=== PATIENT | female | born 1995 | race Caucasian/White ===

== ENCOUNTER 2020-09-03 06:43 | Outpatient (CLI) | payer BC, OTHER | END 2020-09-03 23:59 | disposition home or self-care (01) | LOC: LAB 06:43 | PROVIDERS: ATTEND Internal Medicine Gastroenterology | DX: Z01.812 Encounter for preprocedural laboratory examination (principal); Z20.822 Contact with and (suspected) exposure to COVID-19; R13.10 Dysphagia, unspecified ==

== ENCOUNTER 2020-09-05 10:14 | Day surgery (SDC) | payer BC, OTHER ==
[2020-09-05] MEDS ORDERED: PROPOFOL 200 MG/20 ML BOTTLE IV ONE (10:15)
[2020-09-05] MEDS ORDERED: LIDOCAINE-MPF 2% 5 ML VIAL IJ ONE (10:15)
[2020-09-05] MEDS ORDERED: IRR STERIL WATER FOR IRR 1000 ML BOTTLE IR ONE (10:15)
[2020-09-05 10:41] LABS: *URINE HCG, QUAL NEG (NEGATIVE)
[2020-09-05 10:42] LABS: *BILIRUBIN,URIN NEGATIVE (NEGATIVE); *BLOOD, URINE NEGATIVE (NEGATIVE); *CLARITY,URINE SLIGHTLY CLOUDY (CLEAR); *COLOR,URINE YELLOW (YELLOW); *KETONES,URINE NEGATIVE (NEGATIVE); *UROBILINOGEN,URINE 0.2 E.U./dl (NORMAL); LEUKOCYTE ESTERASE ,URINE 1+ (NEGATIVE); NITRITE, URINE NEGATIVE (NEGATIVE); UGLUCOSE NEGATIVE (NEGATIVE)
[2020-09-05 10:54] LABS: BASOPHILS # (AUTO) 0.1 K/uL (0.0-8.0); BASOPHILS % (AUTO) 0.8 % (0.0-2.0); EOSINOPHILS # (AUTO) 0.2 K/uL (0.0-0.7); EOSINOPHILS % (AUTO) 2.6 % (0.0-7.0); HEMATOCRIT 36.1 % (31.2-41.9); HEMOGLOBIN 12.9 g/dL (10.9-14.3); LYMPHOCYTES % (AUTO) 28.5 % (20.5-51.5); MEAN CORPUSCULAR HEMOGLOBIN 31.8 uug (24.7-32.8); MEAN CORPUSCULAR HGB CONC 36 g/dL (32.3-35.6); MEAN CORPUSCULAR VOLUME 89.1 fL (75.5-95.3); MONOCYTES # (AUTO) 0.3 K/uL (2.0-10.0); MONOCYTES % (AUTO) 4.6 % (0.0-11.0); NEUTROPHILS # (AUTO) 4.5 K/uL (1.8-8.9); NEUTROPHILS % (AUTO) 63.5 % (38.5-71.5); PLATELET COUNT (AUTO) 306 K/uL (179-408); RED BLOOD CELL COUNT(AUTO) 4.05 MIL/uL (3.63-4.92); WHITE BLOOD COUNT (AUTO) 7.1 K/uL (3.8-11.8)
[2020-09-05 11:05] LABS: CREATININE 0.7 mg/dL (0.6-1.3); POTASSIUM 3.6 mmol/L (3.5-5.1)
[2020-09-05 11:11] LABS: BILIRUBIN,TOTAL 0.5 mg/dL (0.2-1.0); TOTAL PROTEIN, SERUM 7.2 g/dL (6.4-8.2)
[2020-09-05 23:02] LABS: BACTERIA,URINE MODERATE /HPF (NONE SEEN); RBC,URINE 0-3 /HPF (0-3); SQUAMOUS EPITHELIAL CELL,UR MANY /HPF (NONE SEEN)
== END 2020-09-05 13:20 | disposition home or self-care (01) ==
LOC: DS 10:14
PROVIDERS: ATTEND Internal Medicine Gastroenterology
DX: R13.10 Dysphagia, unspecified (principal); K21.00 Gastro-esophageal reflux disease with esophagitis, without bleeding; K29.50 Unspecified chronic gastritis without bleeding; K31.89 Other diseases of stomach and duodenum; Z79.899 Other long term (current) drug therapy; Z88.0 Allergy status to penicillin; Z88.1 Allergy status to other antibiotic agents; Z88.2 Allergy status to sulfonamides; Z98.890 Other specified postprocedural states
CPT/HCPCS: 36415; 43239; 80053; 81001; 84703; 85025; 85730; 87086; J3490; J7120 ×2; 88313-TC; 88342; A4217; A4663

== ENCOUNTER 2020-09-10 07:10 | Outpatient (CLI) | payer BC, OTHER ==
[2020-09-10 07:25] LABS: BASOPHILS # (AUTO) 0.1 K/uL (0.0-8.0); BASOPHILS % (AUTO) 1.1 % (0.0-2.0); EOSINOPHILS # (AUTO) 0.2 K/uL (0.0-0.7); EOSINOPHILS % (AUTO) 2.8 % (0.0-7.0); HEMATOCRIT 34.6 % (31.2-41.9); HEMOGLOBIN 12.1 g/dL (10.9-14.3); LYMPHOCYTES # (AUTO) 2.2 K/uL (20.0-40.0); LYMPHOCYTES % (AUTO) 31.9 % (20.5-51.5); MEAN CORPUSCULAR HEMOGLOBIN 31.7 uug (24.7-32.8); MEAN CORPUSCULAR HGB CONC 35 g/dL (32.3-35.6); MEAN CORPUSCULAR VOLUME 90.7 fL (75.5-95.3); MONOCYTES # (AUTO) 0.4 K/uL (2.0-10.0); MONOCYTES % (AUTO) 5.2 % (0.0-11.0); NEUTROPHILS # (AUTO) 4.1 K/uL (1.8-8.9); PLATELET COUNT (AUTO) 255 K/uL (179-408); RED BLOOD CELL COUNT(AUTO) 3.82 MIL/uL (3.63-4.92); WHITE BLOOD COUNT (AUTO) 6.9 K/uL (3.8-11.8)
[2020-09-10] MEDS ORDERED: BARIUM SULFATE 450 ML ORAL.SUSP ONE (07:31)
[2020-09-10] MEDS ORDERED: IV NORMAL SALINE 250 ML IV ONE (07:31)
[2020-09-10] MEDS ORDERED: IOHEXOL 300MG/ML 100 ML INFUS..BTL ONE (07:31)
[2020-09-10] MEDS ORDERED: SWABABLE VALVE TRANSFER SET EA MC ONE (07:31)
[2020-09-10 07:50] LABS: BILIRUBIN,TOTAL 0.5 mg/dL (0.2-1.0); CREATININE 0.7 mg/dL (0.6-1.3); POTASSIUM 4.1 mmol/L (3.5-5.1); TOTAL PROTEIN, SERUM 6.7 g/dL (6.4-8.2)
--- NOTE | 2020-09-11 09:20 | NUR ---
PT. CAME IN FOR CT ABD = PELVIS W/WO CONTRAST ON 09/11/20 ALL RESULTS OF THE PATIENT'S STUDY WERE FAXED TO HER DRKalTHIS MORNING
== END 2020-09-10 23:59 | disposition home or self-care (01) ==
LOC: LAB 07:10
PROVIDERS: ATTEND Family Medicine
DX: K61.0 Anal abscess (principal); K64.9 Unspecified hemorrhoids
CPT/HCPCS: 36415; 74178; 80053; 84702; 85025; Q9951; Q9967; J7050

== ENCOUNTER 2020-12-13 20:31 | Inpatient (IN) | payer BC, OTHER ==
[~2020-12-13] VITALS: Ht 170.2 cm; Wt 96.6 kg
[2020-12-13 22:24] VITALS: BP 100/69
[2020-12-13] MEDS ORDERED: PANT40SU2 PO (22:32)
[2020-12-13] MEDS ORDERED: ASCO500T87 PO (22:32)
[2020-12-13] MEDS ORDERED: VANC1PIG IV (22:32)
[2020-12-13] MEDS ORDERED: LEVO500T90 PO (22:32)
[2020-12-13] MEDS ORDERED: HYDR-4209 PO (22:32)
[2020-12-13] MEDS ORDERED: CYAN-51 PO (22:32)
[2020-12-13] MEDS ORDERED: LACT-246 PO (22:32)
[2020-12-13] MEDS ORDERED: METR500T PO (22:32)
[2020-12-13] MEDS ORDERED: ACET-2154 PO (22:32)
[2020-12-13] MEDS ORDERED: CLOT15CR27 VG (22:32)
[2020-12-13] MEDS ORDERED: ONDA4VIA52 IVP (22:32)
[2020-12-13] MEDS ORDERED: MAG355OR18 PO (22:32)
[2020-12-13] MEDS ORDERED: MAG30ORA14 PO (22:32)
[2020-12-13] MEDS ORDERED: ZOLP5TAB8 PO (22:32)
[2020-12-13] MEDS ORDERED: LINE600I PO (22:35)
--- NOTE | 2020-12-13 23:55 | NUR ---
Pt arrived in the unit at 2210 with staffing assistant via gurney from [facility], accompanied by pt's mother. AAO x4, with history of developmental delay. No acute distress noted. Pt's mother to stay with patient due to condition. Notified Petar ARANDA and Dr. Valenzuela of admission. Pt has DAYAN midline, patent and intact. Denies pain/ discomfort. Oriented pt to the room and equipment. Pertinent assessment done. Safety measures maintained. Call light and personal items within reach. Will continue to monitor. Addendum: 12/14/20 at 0532 by Zack Downey RN DAYAN midline, not flushing. Inserted new peripheral IV in left AC.
[2020-12-14] MEDS ORDERED: Z GUARD REMEDY PASTE 57 GM TUBE TOP PRN (00:15)
[2020-12-14] MEDS ORDERED: VANCOMYCIN IV 1,000 MG in IV DEXTROSE 5% 250 ML IV ONE (01:00)
[2020-12-14] MEDS ORDERED: VANCOMYCIN IV 1,000 MG in IV DEXTROSE 5% 250 ML IV SCH (01:00)
[2020-12-14] MEDS ORDERED: VANCOMYCIN IV 200 ML ONE (01:11)
[2020-12-14 06:36] VITALS: BP 96/57
--- NOTE | 2020-12-14 06:38 | NUR ---
As per family, pt's BP drops after Vanco. Continue to monitor.
[2020-12-14 08:25] LABS: CARBON DIOXIDE 29 mmol/L (21-32); CHLORIDE 103 mmol/L (98-107); CREATININE 0.5 mg/dL (0.6-1.3); GLUCOSE 98 mg/dL (74-106); POTASSIUM 4.1 mmol/L (3.5-5.1); UREA NITROGEN, BLOOD 9 mg/dL (7-18)
[2020-12-14] MEDS ORDERED: HYDROCODONE/APAP 5-325MG TABLET PO PRN (09:30)
[2020-12-14] MEDS ORDERED: ZOLPIDEM 5 MG TABLET PO PRN (09:30)
[2020-12-14] MEDS: CYANOCOBALAMIN 1,000 MCG TABLET PO SCH (10:15)
[2020-12-14] MEDS: ASCORBIC ACID 500 MG TABLET PO SCH (10:15)
[2020-12-14] MEDS: METRONIDAZOLE 500 MG TABLET PO SCH ×2 (10:15→18:12)
[2020-12-14] MEDS: levoFLOXacin 500 MG TABLET PO SCH (10:15)
[2020-12-14] MEDS: ENSURE ENLIVE (VAN) 240 ML LIQUID PO SCH ×2 (10:16→17:15)
[2020-12-14] MEDS: PANTOPRAZOLE SODIUM 40 MG TABLET.DR PO SCH (10:25)
[2020-12-14] MEDS: VANCOMYCIN IV 1,000 MG in IV DEXTROSE 5% 250 ML IV SCH (14:52)
--- NOTE | 2020-12-14 19:04 | NUR ---
Received patient on bed with no respiratory distress noted. No complaints of pain and discomfort made. Midline insertion done on DAYAN, remain intact. IV line on L arm removed, no s/sx of pain or redness noted. Call light placed within reach. Will continue to monitor.
[2020-12-14] MEDS ORDERED: MAGNESIUM OXIDE 400 MG TABLET PO PRN (19:30)
[2020-12-14] MEDS: MIRALAX 17 GM POWD.PACK PO PRN (19:49)
[2020-12-14 20:39] VITALS: BP 106/68
--- NOTE | 2020-12-14 22:00 | NUR ---
Received pt resting in bed. Pt's mother is at bedside. AAO x4. No acute distress noted. Denies pain/ discomfort. DAYAN midline, flushing well. Miralax PRN given as per pt's request with effect. Safety measures maintained. Call light and personal items within reach. Will continue to monitor.
[2020-12-15] MEDS: VANCOMYCIN IV 1,000 MG in IV DEXTROSE 5% 250 ML IV SCH ×2 (01:02→12:23)
[2020-12-15] MEDS: METRONIDAZOLE 500 MG TABLET PO SCH ×4 (01:15→17:25)
[2020-12-15 04:42] VITALS: BP 99/66
[2020-12-15 06:04] LABS: CREATININE 0.6 mg/dL (0.6-1.3)
[2020-12-15] MEDS: PANTOPRAZOLE SODIUM 40 MG TABLET.DR PO SCH (06:11)
[2020-12-15 08:00] VITALS: BP 99/66
[2020-12-15] MEDS: levoFLOXacin 500 MG TABLET PO SCH (08:22)
[2020-12-15] MEDS: CYANOCOBALAMIN 1,000 MCG TABLET PO SCH (08:22)
[2020-12-15] MEDS: ASCORBIC ACID 500 MG TABLET PO SCH (08:22)
[2020-12-15] MEDS: ENSURE ENLIVE (VAN) 240 ML LIQUID PO SCH ×2 (08:28→17:01)
--- NOTE | 2020-12-15 15:37 | NUR ---
patient is alert, oriented x4, no sob, resp even nonlabored, skin warm and dry to touch, wound care provided to perineal wounds, there are two wounds present next to rectum, fistula as well, both wounds are tunneling, packed with iodoform and covered with dry dressing, scant serosanguineous drainage noted on the paked iodoform from yesterday, no odor noted, noted with 10% slough noted to both wounds. wound bed is red in color. patient participated with PT, OT and tolerated well, no nusea, no vomiting, no fever.
--- NOTE | 2020-12-15 16:16 | NUR ---
spoke to dr Garo odonnell regarding patient wound treatment, order received and noted.
[2020-12-15 16:45] VITALS: BP 101/64
[2020-12-15] MEDS: MIRALAX 17 GM POWD.PACK PO PRN (19:56)
[2020-12-15 20:17] VITALS: BP 98/64
--- NOTE | 2020-12-15 20:39 | NUR ---
Received pt resting in bed. Pt's mother is at bedside. AAO x4. No acute distress noted. Denies pain/ discomfort. DAYAN midline, flushing well. Miralax PRN given as per pt's request. Wound dressing intact. Kept pt clean and dry. Safety measures maintained. Call light and personal items within reach. Will continue to monitor.
[2020-12-16 04:56] VITALS: BP 96/57
[2020-12-16] MEDS: PANTOPRAZOLE SODIUM 40 MG TABLET.DR PO SCH (06:03)
[2020-12-16 06:58] LABS: CREATININE 0.6 mg/dL (0.6-1.3); POTASSIUM 3.8 mmol/L (3.5-5.1)
[2020-12-16 07:48] VITALS: BP 104/65
[2020-12-16] MEDS: CYANOCOBALAMIN 1,000 MCG TABLET PO SCH (08:52)
[2020-12-16] MEDS: ASCORBIC ACID 500 MG TABLET PO SCH (08:52)
[2020-12-16] MEDS: ENSURE ENLIVE (VAN) 240 ML LIQUID PO SCH (08:58)
--- NOTE | 2020-12-16 11:29 | NUR ---
WOUND CARE CONSULT: PT SEEN FOR SURGICAL WOUND TO RT BUTTOCK, PRESENT ON ADMISSION. TWO WOUND OPENINGS NOTED WITH ONE CAVITY. TWO PIECES OF IODOFORM PACKING WERE REMOVED, WOUND IRRIGATED WITH NS, THEN PACKED WITH IODOFORM PACKING (ONE PIECE USED). WOUND COVERED WITH GAUZE, ABD PAD AND SECURED WITH PAPER TAPE. PT TOLERATED WELL. IN AGREEMENT WITH PLAN OF CARE. PT TO FOLLOW UP WITH DR PARIKH TODAY IN HIS OFFICE AFTER DISCHARGE, PER PT'S MOTHER AT BEDSIDE. Addendum: 12/16/20 at 1132 by NATALEE FRANCISCO RN Amended: Links added.
--- NOTE | 2020-12-16 13:30 | NUR ---
Discharge instructions provided to the patient and mother at bedside with verbalized understanding. Discharge papers signed by and given to the mother. All belongings well accounted for. Discharge photos taken. IV line removed with no bleeding and no signs or symptoms of infection. ID band taken out. Patient remains alert, oriented x3, not in any form of distress, on room air. Vital signs stable. She denies any pain or discomfort. Assisted with her needs. Assisted patient safely to the lobby via wheelchair. Patient discharged to home, picked up by mother and family friend via private car.
== END 2020-12-16 13:30 | disposition home health service (06) | DRG 395 ==
PROVIDERS: ADMIT Physical Medicine & Rehabilitation Pain Medicine; ATTEND Physical Medicine & Rehabilitation Pain Medicine
PROC: 05H933Z Insertion of Infusion Device into Right Brachial Vein, Percutaneous Approach (ICD-10-PCS; principal; 2020-12-14)
DX: K61.1 Rectal abscess (principal); B95.2 Enterococcus as the cause of diseases classified elsewhere; E66.01 Morbid (severe) obesity due to excess calories; F32.9 Major depressive disorder, single episode, unspecified; F41.9 Anxiety disorder, unspecified; Z88.0 Allergy status to penicillin; Z88.2 Allergy status to sulfonamides; R62.50 Unspecified lack of expected normal physiological development in childhood; B96.89 Other specified bacterial agents as the cause of diseases classified elsewhere
CPT/HCPCS: 36415; A4663; J3370; J7040; J7060

== ENCOUNTER 2021-02-21 09:41 | Outpatient (CLI) | payer BC, OTHER ==
[~2021-02-21 09:41] MED LIST: ACET-2154 PO; ASCO500T87 PO; CLOT15CR27 VG; CYAN-51 PO; LACT-246 PO; MAG30ORA14 PO; MAG355OR18 PO
[2021-02-21 15:17] LABS: *BILIRUBIN,URIN NEGATIVE (NEGATIVE); *BLOOD, URINE NEGATIVE (NEGATIVE); *CLARITY,URINE SLIGHTLY CLOUDY (CLEAR); *COLOR,URINE YELLOW (YELLOW); *KETONES,URINE NEGATIVE (NEGATIVE); *UROBILINOGEN,URINE 0.2 E.U./dl (NORMAL); LEUKOCYTE ESTERASE ,URINE 3+ (NEGATIVE); NITRITE, URINE NEGATIVE (NEGATIVE); UGLUCOSE NEGATIVE (NEGATIVE)
[2021-02-21 15:24] LABS: BACTERIA,URINE MANY /HPF (NONE SEEN); WBC,URINE 80-100 /HPF (0-3)
[2021-02-21 15:25] LABS: MUCUS,URINE FEW /LPF (0-FEW); SQUAMOUS EPITHELIAL CELL,UR MODERATE /HPF (NONE SEEN); URINE AMORPHOUS PHOSPHATES FEW /HPF
== END 2021-02-21 23:59 | disposition home or self-care (01) ==
LOC: LAB 09:41
PROVIDERS: ATTEND Family Medicine
DX: N39.0 Urinary tract infection, site not specified (principal)
CPT/HCPCS: 87086